=== PATIENT | male | born 1965 | race Two or more races ===

== ENCOUNTER 2019-11-16 08:40 | Emergency (ER) | payer MEDICAID, OTHER ==
[~2019-11-16] VITALS: Ht 170.2 cm; Wt 89.4 kg
[2019-11-16] MEDS ORDERED: SODIUM CHLORIDE 0.9% 1,000 ML IV ONE (09:08)
[2019-11-16 10:09] LABS: Basophils # (auto) 0 10 ^3/uL (0-0.2); Eosinophils # (auto) 0.1 10 ^3/uL (0-0.8); Eosinophils % (auto) 1.6 % (0.0-7.0); Lymphocytes % (auto) 20.8 % (10.0-50.0); Mean Corpuscular Hemoglobin 32.7 pg (28.0-32.0); Mean Corpuscular Volume 96.2 fL (80.0-100.0); Monocytes # (auto) 0.7 10 ^3/uL (0-1.3); Monocytes % (auto) 14.8 % (0.0-12.0); Neutrophils % (auto) 61.8 % (37.0-80.0); Nucleated Red Blood Cells % 0.1 %; Platelet Count (auto) 123 10^3/uL (140-450); Red Blood Cells 4.57 10^6/uL (4.5-5.90); Red Cell Distribution Width 13.5 % (11.8-14.3); White Blood Cell 4.9 10^3/uL (4.4-10.8)
[2019-11-16 10:20] LABS: Albumin 3.4 g/dL (3.4-5.0); Calcium 8.2 mg/dL (8.5-10.1); Potassium 3.7 mmol/L (3.5-5.1)
[2019-11-16 10:24] LABS: BUN/Creatinine Ratio 23.3; Bilirubin, Total 1.2 mg/dL (0.2-1.0); Total Protein 7.2 g/dL (6.4-8.2)
[2019-11-16] MEDS ORDERED: AZITHROMYCIN 500MG/ 250ML 250 ML IV ONE (11:45)
[2019-11-16] MEDS ORDERED: cefTRIAXone 1GM/50ML D5W 50 ML IV ONE (11:45)
[2019-11-16 11:48] LABS: Urine Bacteria NONE SEEN /hpf (None Seen); Urine Blood Negative /uL (Negative); Urine Mucus FEW (None Seen); Urine Specific Gravity 1.032 (1.001-1.035); Urine WBC 3 /hpf (0 - 3)
[2019-11-16 12:00] LABS: Alcohol, Urine < 3.0 mg/dL (0-5); Amphetamine Screen, Urine NEGATIVE (NEGATIVE); Barbiturate Scree,Urine NEGATIVE (NEGATIVE); Benzodiazephine Screen, Urine NEGATIVE (NEGATIVE); Cannabinoid Screen, Urine NEGATIVE (NEGATIVE); Cocaine Screen, Urine NEGATIVE (NEGATIVE); Opiate Scree,Urine NEGATIVE (NEGATIVE); Phencyclidine Screen, Urine NEGATIVE (NEGATIVE)
[2019-11-16] MEDS ORDERED: ACETAMINOPHEN 650 mg PER 20 mL UD ONE (12:03)
[2019-11-16] MEDS ORDERED: ACETAMINOPHEN 650 mg PER 20 mL UD PO ONE (12:15)
[2019-11-16 12:18] VITALS: BP 104/66
== END 2019-11-16 13:23 | disposition home or self-care (01) ==
LOC: ER 08:40
DX: B34.9 Viral infection, unspecified (principal); J18.9 Pneumonia, unspecified organism; R51 Headache; J45.909 Unspecified asthma, uncomplicated
CPT/HCPCS: 36415; 71045; 80053; 80307; 81001; 83735; 84443; 85025; 87070; 87804; 87880; 93005; 96365; 96367; 99285; J0456; J0696; J7030

== ENCOUNTER 2020-12-09 16:22 | Emergency (ER) | payer MEDICAID ==
[~2020-12-09] VITALS: Ht 170.2 cm; Wt 88.9 kg
[2020-12-09 16:26] VITALS: BP 139/87
[2020-12-09 17:07] LABS: Basophils # (auto) 0 10 ^3/uL (0-0.2); Basophils % (auto) 0.5 % (0.0-2.0); Eosinophils # (auto) 0.4 10 ^3/uL (0-0.8); Eosinophils % (auto) 4.8 % (0.0-7.0); Hematocrit 43.3 % (41.0-53.0); Hemoglobin 14.6 g/dL (13.5-17.5); Lymphocytes # (auto) 3.1 10 ^3/uL (0.4-5.4); Lymphocytes % (auto) 36.4 % (10.0-50.0); Mean Corpuscular Hemoglobin 32.8 pg (28.0-32.0); Mean Corpuscular Hgb Conc. 33.7 g/dL (32.0-36.0); Mean Corpuscular Volume 97.3 fL (80.0-100.0); Monocytes # (auto) 0.7 10 ^3/uL (0-1.3); Neutrophils # (auto) 4.2 10 ^3/uL (1.6-8.6); Neutrophils % (auto) 50.3 % (37.0-80.0); Platelet Count (auto) 233 10^3/uL (140-450); Red Blood Cells 4.45 10^6/uL (4.5-5.90); Red Cell Distribution Width 13.8 % (11.8-14.3); White Blood Cell 8.4 10^3/uL (4.4-10.8)
[2020-12-09 17:21] LABS: Calcium 8.2 mg/dL (8.5-10.1); Chloride 112 mmol/L (98-107); Potassium 4.1 mmol/L (3.5-5.1); Sodium 142 mmol/L (136-145)
[2020-12-09 17:29] LABS: Alanine Aminotransferase 34 U/L (16-61); Albumin 3.7 g/dL (3.4-5.0); Alkaline Phosphatase 54 U/L (45-117); Anion Gap 6 (5-15); Aspartate Aminotransferase 26 U/L (15-37); BUN/Creatinine Ratio 35.1; Bilirubin, Total 0.5 mg/dL (0.2-1.0); Blood Urea Nitrogen 27 mg/dL (7-18); Carbon Dioxide 24 mmol/L (21-32); GFR African American 135 mL/min; GFR Non-African American 112 mL/min; Glucose 88 mg/dL (74-106); Total Protein 6.9 g/dL (6.4-8.2)
== END 2020-12-09 17:52 | disposition home or self-care (01) ==
LOC: ER 16:22
DX: R07.89 Other chest pain (principal); J45.909 Unspecified asthma, uncomplicated
CPT/HCPCS: 36415; 71046; 80053; 83880; 84484; 85025; 85379; 93005

== ENCOUNTER 2021-04-16 11:32 | Emergency (ER) | payer MEDICAID ==
[~2021-04-16] VITALS: Ht 170.2 cm; Wt 83.9 kg
[2021-04-16 14:22] LABS: Basophils # (auto) 0.1 10 ^3/uL (0-0.2); Basophils % (auto) 0.7 % (0.0-2.0); Eosinophils # (auto) 0.5 10 ^3/uL (0-0.8); Eosinophils % (auto) 6.4 % (0.0-7.0); Hemoglobin 15.6 g/dL (13.5-17.5); Lymphocytes # (auto) 2.6 10 ^3/uL (0.4-5.4); Lymphocytes % (auto) 35.4 % (10.0-50.0); Mean Corpuscular Volume 97.1 fL (80.0-100.0); Monocytes # (auto) 0.6 10 ^3/uL (0-1.3); Monocytes % (auto) 7.6 % (0.0-12.0); Neutrophils # (auto) 3.7 10 ^3/uL (1.6-8.6); Neutrophils % (auto) 49.9 % (37.0-80.0); Red Blood Cells 4.74 10^6/uL (4.5-5.90); Red Cell Distribution Width 13.8 % (11.8-14.3); White Blood Cell 7.5 10^3/uL (4.4-10.8)
[2021-04-16 14:25] LABS: Urine Bacteria NONE SEEN /hpf (None Seen); Urine Blood Negative /uL (Negative); Urine Mucus FEW (None Seen); Urine Specific Gravity 1.033 (1.001-1.035); Urine WBC 2 /hpf (0 - 3)
[2021-04-16 14:33] LABS: Albumin 3.8 g/dL (3.4-5.0); BUN/Creatinine Ratio 26.4; Calcium 8.6 mg/dL (8.5-10.1); Potassium 4.1 mmol/L (3.5-5.1)
[2021-04-16 14:36] LABS: Bilirubin, Total 0.9 mg/dL (0.2-1.0); Total Protein 7.5 g/dL (6.4-8.2)
[2021-04-16] MEDS ORDERED: KETOROLAC TROMETH 60MG/2ML VIAL IM ONE (16:45)
[2021-04-16 17:45] VITALS: BP 145/74
== END 2021-04-16 17:47 | disposition home or self-care (01) ==
LOC: ER 11:32
DX: M94.0 Chondrocostal junction syndrome [Tietze] (principal); M76.20 Iliac crest spur, unspecified hip; K63.89 Other specified diseases of intestine; K57.90 Diverticulosis of intestine, part unspecified, without perforation or abscess without bleeding; G89.29 Other chronic pain; M54.5 Low back pain; J45.909 Unspecified asthma, uncomplicated; Z88.1 Allergy status to other antibiotic agents
CPT/HCPCS: 36415; 71046; 72170; 74176; 80053; 81001; 85025; 96372; 99285; J1885

== ENCOUNTER → 2022-10-24 | Outpatient (CLI) | payer MEDICAID ==
[2022-10-24 12:47] LABS: Basophils # (auto) 0 10 ^3/uL (0-0.2); Basophils % (auto) 0.5 % (0.0-2.0); Eosinophils # (auto) 0.3 10 ^3/uL (0-0.8); Lymphocytes # (auto) 1.5 10 ^3/uL (0.4-5.4); Nucleated Red Blood Cells % 0.1 %; Red Cell Distribution Width 13.8 % (11.8-14.3); White Blood Cell 9.7 10^3/uL (4.4-10.8)
[2022-10-24 12:49] LABS: Eosinophils % (auto) 3.4 % (0.0-7.0); Hemoglobin 19.8 g/dL (13.5-17.5); Lymphocytes % (auto) 15.3 % (10.0-50.0); Mean Corpuscular Hemoglobin 34.6 pg (28.0-32.0); Mean Corpuscular Hgb Conc. 34.4 g/dL (32.0-36.0); Mean Corpuscular Volume 100.4 fL (80.0-100.0); Monocytes # (auto) 0.7 10 ^3/uL (0-1.3); Monocytes % (auto) 7.7 % (0.0-12.0); Neutrophils # (auto) 7.1 10 ^3/uL (1.6-8.6); Neutrophils % (auto) 73.1 % (37.0-80.0); Red Blood Cells 5.74 10^6/uL (4.5-5.90)
[2022-10-24 12:52] LABS: Hematocrit 57.6 % (41.0-53.0)
[2022-10-24 13:00] LABS: Calcium 8.3 mg/dL (8.5-10.1); Potassium 4.4 mmol/L (3.5-5.1)
== END | disposition home or self-care (01) ==
LOC: LAB 11:49
PROVIDERS: ATTEND Urology
DX: N52.9 Male erectile dysfunction, unspecified (principal); E29.1 Testicular hypofunction
CPT/HCPCS: 36415; 80048; 84153; 85025

== ENCOUNTER → 2023-04-19 | Outpatient (CLI) | payer MEDICAID ==
[2023-04-19 15:33] LABS: Basophils # (auto) 0.1 10 ^3/uL (0-0.2); Basophils % (auto) 0.8 % (0.0-2.0); Eosinophils # (auto) 0.4 10 ^3/uL (0-0.8); Eosinophils % (auto) 5.3 % (0.0-7.0); Hematocrit 46.2 % (41.0-53.0); Lymphocytes # (auto) 2.8 10 ^3/uL (0.4-5.4); Lymphocytes % (auto) 41.1 % (10.0-50.0); Mean Corpuscular Hemoglobin 34.6 pg (28.0-32.0); Mean Corpuscular Hgb Conc. 34.5 g/dL (32.0-36.0); Mean Corpuscular Volume 100.3 fL (80.0-100.0); Monocytes # (auto) 0.6 10 ^3/uL (0-1.3); Neutrophils # (auto) 3.1 10 ^3/uL (1.6-8.6); Neutrophils % (auto) 44.8 % (37.0-80.0); Nucleated Red Blood Cells % 0.1 %; Red Blood Cells 4.61 10^6/uL (4.5-5.90); Red Cell Distribution Width 13.4 % (11.8-14.3); White Blood Cell 6.9 10^3/uL (4.4-10.8)
[2023-04-19 15:54] LABS: Alanine Aminotransferase 36 U/L (7-40); Albumin 4.5 g/dL (3.2-4.8); Alkaline Phosphatase 57 U/L (46-116); Anion Gap 4.3 (5-15); Aspartate Aminotransferase 20 U/L (13-40); BUN/Creatinine Ratio 12.8 (10.0-20.0); Bilirubin, Total 0.5 mg/dL (0.2-1.0); Blood Urea Nitrogen 11 mg/dL (9-23); Calcium 8.7 mg/dL (8.7-10.4); Carbon Dioxide 26.7 mmol/L (20-30); Chloride 108 mmol/L (98-107); Glucose 100 mg/dL (74-106); Potassium 3.8 mmol/L (3.5-5.1); Sodium 139 mmol/L (136-145); Total Protein 7.2 g/dL (5.7-8.2)
[2023-04-19 17:47] LABS: Bilirubin, Direct 0.2 mg/dL (<0.3)
== END | disposition home or self-care (01) ==
LOC: LAB 15:07
PROVIDERS: ATTEND Urology
DX: E29.1 Testicular hypofunction (principal)
CPT/HCPCS: 36415; 80048; 80076; 84153; 84403; 85025

== ENCOUNTER 2023-04-28 17:40 | Emergency (ER) | payer MEDICAID ==
[~2023-04-28] VITALS: Ht 170.2 cm; Wt 82.2 kg
[2023-04-28 17:44] VITALS: BP 130/70; RESP 18; O2SAT 95
[2023-04-28 18:11] LABS: Basophils # (auto) 0.1 10 ^3/uL (0-0.2); Basophils % (auto) 0.7 % (0.0-2.0); Eosinophils # (auto) 0.6 10 ^3/uL (0-0.8); Hemoglobin 15.1 g/dL (13.5-17.5); Lymphocytes # (auto) 3.5 10 ^3/uL (0.4-5.4); Neutrophils # (auto) 3.1 10 ^3/uL (1.6-8.6)
[2023-04-28 18:12] LABS: Eosinophils % (auto) 7.5 % (0.0-7.0); Hematocrit 43.7 % (41.0-53.0); Lymphocytes % (auto) 43.7 % (10.0-50.0); Mean Corpuscular Hemoglobin 34.6 pg (28.0-32.0); Mean Corpuscular Hgb Conc. 34.6 g/dL (32.0-36.0); Monocytes # (auto) 0.7 10 ^3/uL (0-1.3); Monocytes % (auto) 8.8 % (0.0-12.0); Neutrophils % (auto) 39.3 % (37.0-80.0); Nucleated Red Blood Cells % 0.1 %; Red Blood Cells 4.37 10^6/uL (4.5-5.90); Red Cell Distribution Width 13.6 % (11.8-14.3); White Blood Cell 7.9 10^3/uL (4.4-10.8)
[2023-04-28 18:20] LABS: Alanine Aminotransferase 27 U/L (7-40); Albumin 4.3 g/dL (3.2-4.8); Alkaline Phosphatase 50 U/L (46-116); Anion Gap 6 (5-15); Aspartate Aminotransferase 23 U/L (13-40); BUN/Creatinine Ratio 18.4 (10.0-20.0); Bilirubin, Total 0.5 mg/dL (0.2-1.0); Blood Urea Nitrogen 14 mg/dL (9-23); Calcium 8.9 mg/dL (8.5-10.1); Carbon Dioxide 23 mmol/L (20-30); Chloride 111 mmol/L (98-107); Glucose 91 mg/dL (74-106); Potassium 3.8 mmol/L (3.5-5.1); Sodium 140 mmol/L (136-145); Total Protein 6.9 g/dL (5.7-8.2)
[2023-04-28 18:22] LABS: INR 1.04 (0.9-1.15); Partial Thromboplastin Time 29.3 SEC (24.5-34.5); Prothrombin Time 10.9 sec (9.3-11.8)
[2023-04-28 20:48] VITALS: PULSE 75
== END 2023-04-28 20:53 | disposition left against medical advice (07) ==
LOC: ER 17:40
DX: R07.89 Other chest pain (principal); I10 Essential (primary) hypertension; J45.909 Unspecified asthma, uncomplicated; F17.210 Nicotine dependence, cigarettes, uncomplicated; G89.29 Other chronic pain; M54.9 Dorsalgia, unspecified; Z88.1 Allergy status to other antibiotic agents
CPT/HCPCS: 36415; 71045; 80053; 83735; 83880; 84484; 85025; 85610; 85730; 93005

== ENCOUNTER 2023-10-24 13:43 | Inpatient (IN) | payer MEDICAID ==
[~2023-10-24] VITALS: Ht 180.3 cm; Wt 81.1 kg
[2023-10-24 05:00] VITALS: BP 117/81; PULSE 76; RESP 18; TEMP 98.5; O2SAT 95
[2023-10-24 14:30] LABS: Urine WBC None Seen /hpf (0 - 3)
[2023-10-24 14:47] LABS: Urine Bacteria NONE SEEN /hpf (None Seen); Urine Blood Negative /uL (Negative); Urine Clarity Clear (Clear); Urine Color Colorless (Yellow); Urine Protein, UAD Negative (Negative); Urine Specific Gravity 1.008 (1.001-1.035); Urine Urobilinogen Normal (Negative)
[2023-10-24 15:04] LABS: Basophils # (auto) 0 10 ^3/uL (0-0.2); Basophils % (auto) 0.5 % (0.0-2.0); Eosinophils # (auto) 0.4 10 ^3/uL (0-0.8); Eosinophils % (auto) 4.7 % (0.0-7.0); Hematocrit 48.6 % (41.0-53.0); Hemoglobin 16.4 g/dL (13.5-17.5); Lymphocytes # (auto) 2.4 10 ^3/uL (0.4-5.4); Lymphocytes % (auto) 29.2 % (10.0-50.0); Mean Corpuscular Hgb Conc. 33.8 g/dL (32.0-36.0); Mean Corpuscular Volume 100.6 fL (80.0-100.0); Monocytes # (auto) 0.7 10 ^3/uL (0-1.3); Monocytes % (auto) 8.9 % (0.0-12.0); Neutrophils # (auto) 4.8 10 ^3/uL (1.6-8.6); Neutrophils % (auto) 56.7 % (37.0-80.0); Red Blood Cells 4.83 10^6/uL (4.5-5.90); Red Cell Distribution Width 13.8 % (11.8-14.3); White Blood Cell 8.4 10^3/uL (4.4-10.8)
[2023-10-24 15:29] LABS: Alanine Aminotransferase 27 U/L (7-40); Albumin 4.7 g/dL (3.2-4.8); Alkaline Phosphatase 71 U/L (46-116); Anion Gap 3 (5-15); Aspartate Aminotransferase 24 U/L (13-40); BUN/Creatinine Ratio 17.2 (10.0-20.0); Bilirubin, Total 0.7 mg/dL (0.2-1.0); Blood Urea Nitrogen 15 mg/dL (9-23); Calcium 9.4 mg/dL (8.5-10.1); Carbon Dioxide 31 mmol/L (20-30); Chloride 104 mmol/L (98-107); Glucose 87 mg/dL (74-106); Potassium 4.1 mmol/L (3.5-5.1); Sodium 138 mmol/L (136-145); Total Protein 7.3 g/dL (5.7-8.2)
[2023-10-24 15:44] LABS: Lipase 40 U/L (12-53)
[2023-10-24 20:15] VITALS: PULSE 85; RESP 18; O2SAT 98
[2023-10-24] MEDS ORDERED: TEMAZEPAM 15 MG CAP PO PRN (20:30)
[2023-10-24] MEDS ORDERED: ALBUTEROL SULF 2.5 MG/0.5ML(0.5%) NEB SOLN NEB PRN (20:30)
[2023-10-24] MEDS: cefTRIAXone 1GM/50ML D5W 50 ML IV ONE (20:30)
[2023-10-24] MEDS ORDERED: ACETAMINOPHEN 325 MG TAB PO PRN (20:30)
[2023-10-24] MEDS ORDERED: ONDANSETRON HCL 4 MG/2 ML VIAL IV PRN (20:30)
[2023-10-24] MEDS: SODIUM CHLORIDE 0.9% 1,000 ML IVB ONE (20:48)
[2023-10-24] MEDS: metroNIDAZOLE 500MG/100ML 100 ML IV ONE (20:48)
[2023-10-24] MEDS: MORPHINE SULFATE 4 MG/ML SYR/VIAL IV ONE (20:49)
[2023-10-24] MEDS: ONDANSETRON HCL 4 MG/2 ML VIAL IV ONE (20:49)
[2023-10-24 20:51] VITALS: BP 144/101; PULSE 81; RESP 16; TEMP 97.9; O2SAT 97
[2023-10-25] VITALS (10 sets, daily range): BP systolic 105–124; BP diastolic 71–90; PULSE 68–77; RESP 16–18; TEMP 97.5–98.5; O2SAT 94–98
[2023-10-25] MEDS ORDERED: HYDR-4072 PO (01:40)
[2023-10-25] MEDS ORDERED: TEST1INJ9 IM (01:40)
[2023-10-25] MEDS ORDERED: HYDR12.59 PO (01:40)
[2023-10-25] MEDS ORDERED: IBUP-1455 PO (01:40)
[2023-10-25] MEDS: metroNIDAZOLE 500MG/100ML 100 ML IV SCH (05:18)
[2023-10-25 07:07] LABS: Basophils # (auto) 0.1 10 ^3/uL (0-0.2); Basophils % (auto) 0.8 % (0.0-2.0); Eosinophils # (auto) 0.4 10 ^3/uL (0-0.8); Eosinophils % (auto) 5.2 % (0.0-7.0); Hematocrit 48.3 % (41.0-53.0); Hemoglobin 16.3 g/dL (13.5-17.5); Lymphocytes # (auto) 1.5 10 ^3/uL (0.4-5.4); Lymphocytes % (auto) 21.7 % (10.0-50.0); Mean Corpuscular Hemoglobin 33.9 pg (28.0-32.0); Mean Corpuscular Hgb Conc. 33.8 g/dL (32.0-36.0); Mean Corpuscular Volume 100.4 fL (80.0-100.0); Monocytes # (auto) 0.7 10 ^3/uL (0-1.3); Monocytes % (auto) 10.1 % (0.0-12.0); Neutrophils # (auto) 4.3 10 ^3/uL (1.6-8.6); Neutrophils % (auto) 62.2 % (37.0-80.0); Nucleated Red Blood Cells % 0.1 %; Red Blood Cells 4.81 10^6/uL (4.5-5.90); Red Cell Distribution Width 13.4 % (11.8-14.3)
[2023-10-25 07:17] LABS: Chloride 108 mmol/L (98-107); Potassium 3.9 mmol/L (3.5-5.1); Sodium 140 mmol/L (136-145)
[2023-10-25 07:18] LABS: Anion Gap 8 (5-15); Calcium 8.6 mg/dL (8.5-10.1); Carbon Dioxide 24 mmol/L (20-30)
[2023-10-25 07:23] LABS: BUN/Creatinine Ratio 15.5 (10.0-20.0); Blood Urea Nitrogen 11 mg/dL (9-23); Glucose 84 mg/dL (74-106)
[2023-10-25] MEDS: cefTRIAXone 1GM/50ML D5W 50 ML IV SCH (09:36)
[2023-10-25] MEDS: HYDROcodone-ACET 5/325MG TAB PO PRN (09:37)
[2023-10-25] MEDS: hydroCHLOROthiazide 25 MG TAB PO SCH (09:48)
[2023-10-25] MEDS: SODIUM CHLORIDE 0.9% 1,000 ML IV SCH (10:45)
[2023-10-25] MEDS ORDERED: chlordiazePOXIDE HCL 25 MG CAP PO PRN (10:45)
[2023-10-25] MEDS: FOLIC ACID 1 MG in D5W 5% 50 ML INJ ONE (10:45)
[2023-10-25] MEDS: THIAMINE 100mg/ml INJ (200mg/2ml VIAL) IV ONE (14:10)
[2023-10-26] VITALS (11 sets, daily range): BP systolic 115–139; BP diastolic 58–90; PULSE 55–78; RESP 18–20; TEMP 36.8; O2SAT 91–96
[2023-10-26 04:31] LABS: Basophils # (auto) 0.1 10 ^3/uL (0-0.2); Eosinophils # (auto) 0.4 10 ^3/uL (0-0.8); Eosinophils % (auto) 6.5 % (0.0-7.0); Hematocrit 49.5 % (41.0-53.0); Hemoglobin 16.5 g/dL (13.5-17.5); Lymphocytes # (auto) 1.6 10 ^3/uL (0.4-5.4); Lymphocytes % (auto) 27.4 % (10.0-50.0); Mean Corpuscular Hemoglobin 33.7 pg (28.0-32.0); Mean Corpuscular Hgb Conc. 33.4 g/dL (32.0-36.0); Mean Corpuscular Volume 100.8 fL (80.0-100.0); Monocytes # (auto) 0.5 10 ^3/uL (0-1.3); Monocytes % (auto) 8.7 % (0.0-12.0); Neutrophils # (auto) 3.2 10 ^3/uL (1.6-8.6); Neutrophils % (auto) 56.4 % (37.0-80.0); Red Cell Distribution Width 13.3 % (11.8-14.3); White Blood Cell 5.7 10^3/uL (4.4-10.8)
[2023-10-26 04:41] LABS: Chloride 109 mmol/L (98-107); Potassium 4.1 mmol/L (3.5-5.1); Sodium 141 mmol/L (136-145)
[2023-10-26 04:42] LABS: Anion Gap 7 (5-15); Calcium 8.7 mg/dL (8.5-10.1); Carbon Dioxide 25 mmol/L (20-30)
[2023-10-26 04:47] LABS: BUN/Creatinine Ratio 11.3 (10.0-20.0); Blood Urea Nitrogen 8 mg/dL (9-23); Glucose 87 mg/dL (74-106)
[2023-10-26] MEDS: THIAMINE 100mg/ml INJ (200mg/2ml VIAL) IV SCH (10:52)
[2023-10-26] MEDS: FOLIC ACID 1 MG in D5W 5% 50 ML INJ SCH (10:53)
[2023-10-27] VITALS (7 sets, daily range): BP systolic 118–144; BP diastolic 58–92; PULSE 68–87; RESP 18–20; TEMP 36.4–36.6; O2SAT 92–96
[2023-10-27] MEDS ORDERED: METR-344 PO (13:45)
== END 2023-10-27 15:20 | disposition home or self-care (01) | DRG 244 ==
LOC: ER 13:43 → CENTRAL 20:34 → OVERFLOW 20:34 → CENTRAL 10-25 00:16
PROVIDERS: ADMIT Nurse Practitioner; ATTEND Internal Medicine
DX: K57.32 Diverticulitis of large intestine without perforation or abscess without bleeding (principal); F10.10 Alcohol abuse, uncomplicated; F17.210 Nicotine dependence, cigarettes, uncomplicated; I10 Essential (primary) hypertension; J45.909 Unspecified asthma, uncomplicated; Z88.1 Allergy status to other antibiotic agents
CPT/HCPCS: 36415; 74176; 80048; 80053; 81001; 83690; 85025; 96374; G0378; J2405; J3490; J7060

== ENCOUNTER 2024-05-15 07:05 | Emergency (ER) | payer MEDICAID ==
[~2024-05-15] VITALS: Ht 170.2 cm; Wt 84.3 kg
[~2024-05-15 07:05] MED LIST: HYDR-4072 PO; HYDR12.59 PO; IBUP-1455 PO; METR-344 PO; TEST1INJ9 IM
[2024-05-15 07:50] VITALS: BP 133/99; PULSE 81; RESP 18; TEMP 97.9; O2SAT 95
[2024-05-15] MEDS: KETOROLAC TROMETH 60MG/2ML VIAL IM ONE (08:43)
== END 2024-05-15 08:56 | disposition home or self-care (01) ==
LOC: ER 07:05
DX: S00.31XA Abrasion of nose, initial encounter (principal); G44.309 Post-traumatic headache, unspecified, not intractable; I10 Essential (primary) hypertension; J45.909 Unspecified asthma, uncomplicated; F17.210 Nicotine dependence, cigarettes, uncomplicated; Z88.1 Allergy status to other antibiotic agents; Z79.899 Other long term (current) drug therapy; W18.39XA Other fall on same level, initial encounter; Y93.89 Activity, other specified; Y92.89 Other specified places as the place of occurrence of the external cause; Y99.8 Other external cause status
CPT/HCPCS: 70160; 70450; 96372; 99285; J1885

== ENCOUNTER 2024-05-29 11:52 | Inpatient (IN) | payer MEDICAID ==
[~2024-05-29] VITALS: Ht 170.2 cm; Wt 89.9 kg
[2024-05-29 14:14] LABS: Urine Bacteria None Seen /hpf (None Seen); Urine WBC None Seen /hpf (0 - 3)
[2024-05-29 14:37] LABS: Urine Blood Negative /uL (Negative); Urine Clarity Clear (Clear); Urine Color Yellow (Yellow); Urine Protein, UAD Negative (Negative); Urine Specific Gravity 1.022 (1.001-1.035); Urine Urobilinogen Normal (Negative); Urine pH 5.5 (5.0-9.0)
[2024-05-29 14:40] LABS: Basophils # (auto) 0.1 10 ^3/uL (0-0.2); Basophils % (auto) 0.6 % (0.0-2.0); Eosinophils # (auto) 0.3 10 ^3/uL (0-0.8); Eosinophils % (auto) 3.2 % (0.0-7.0); Hematocrit 55.8 % (41.0-53.0); Lymphocytes # (auto) 1.8 10 ^3/uL (0.4-5.4); Lymphocytes % (auto) 19.3 % (10.0-50.0); Mean Corpuscular Hemoglobin 35.1 pg (28.0-32.0); Mean Corpuscular Hgb Conc. 34.1 g/dL (32.0-36.0); Mean Corpuscular Volume 102.8 fL (80.0-100.0); Monocytes # (auto) 0.9 10 ^3/uL (0-1.3); Neutrophils # (auto) 6.5 10 ^3/uL (1.6-8.6); Neutrophils % (auto) 67.9 % (37.0-80.0); Nucleated Red Blood Cells % 0.1 %; Platelet Count (auto) 281 10^3/uL (140-450); Red Blood Cells 5.43 10^6/uL (4.5-5.90); Red Cell Distribution Width 13.7 % (11.8-14.3); White Blood Cell 9.6 10^3/uL (4.4-10.8)
[2024-05-29 14:57] LABS: Chloride 105 mmol/L (98-107); Potassium 3.9 mmol/L (3.5-5.1); Sodium 137 mmol/L (136-145)
[2024-05-29 14:58] LABS: Anion Gap 6 (5-15); Carbon Dioxide 26 mmol/L (20-31)
[2024-05-29 14:59] LABS: Calcium 9.5 mg/dL (8.7-10.4)
[2024-05-29 15:04] LABS: BUN/Creatinine Ratio 11.4 (10.0-20.0); Blood Urea Nitrogen 12 mg/dL (9-23); Glucose 97 mg/dL (74-106)
[2024-05-29 15:18] VITALS: PULSE 82; RESP 18; O2SAT 94
[2024-05-29] MEDS: cefTRIAXone 1GM/50ML D5W 50 ML IV ONE (17:54)
[2024-05-29] MEDS: metroNIDAZOLE 500MG/100ML 100 ML IV ONE (17:54)
[2024-05-29] MEDS: SODIUM CHLORIDE 0.9% 1,000 ML IV ONE ×2 (17:54)
[2024-05-29] MEDS: MORPHINE SULFATE 4 MG/ML SYR/VIAL IV ONE (17:54)
[2024-05-29] MEDS: ONDANSETRON HCL 4 MG/2 ML VIAL IV ONE (17:56)
[2024-05-29 20:15] VITALS: PULSE 80; RESP 16; O2SAT 96
[2024-05-29] MEDS ORDERED: ACETAMINOPHEN 325 MG TAB PO PRN (22:45)
[2024-05-29] MEDS ORDERED: DOCUSATE SOD 100 MG CAP PO PRN (22:45)
[2024-05-29] MEDS ORDERED: hydrALAZINE HCL 20 MG/ML VL IV PRN (22:45)
[2024-05-29] MEDS: SODIUM CHLORIDE 0.9% 1,000 ML IV SCH (23:10)
[2024-05-29] MEDS ORDERED: NITROGLYCERIN 0.4 MG SL TAB SL PRN (23:15)
[2024-05-29] MEDS ORDERED: MORPHINE SULFATE INJ 2 MG/ml SYRG IV PRN (23:15)
[2024-05-30] MEDS: MORPHINE SULFATE INJ 2 MG/ml SYRG IV PRN (01:26)
[2024-05-30 02:49] VITALS: BP 130/91; PULSE 76; RESP 18; TEMP 97.8; O2SAT 96
[2024-05-30] MEDS ORDERED: HYDR-4072 (03:28)
[2024-05-30] MEDS: metroNIDAZOLE 500MG/100ML 100 ML IV SCH (05:17)
[2024-05-30 06:27] LABS: Basophils # (auto) 0.1 10 ^3/uL (0-0.2); Eosinophils # (auto) 0.4 10 ^3/uL (0-0.8); Hemoglobin 17.1 g/dL (13.5-17.5); Lymphocytes # (auto) 1.9 10 ^3/uL (0.4-5.4); Monocytes # (auto) 0.8 10 ^3/uL (0-1.3); Monocytes % (auto) 11.4 % (0.0-12.0); Neutrophils # (auto) 3.5 10 ^3/uL (1.6-8.6)
[2024-05-30 06:30] LABS: Alanine Aminotransferase 25 U/L (7-40); Albumin 3.8 g/dL (3.2-4.8); Alkaline Phosphatase 56 U/L (46-116); Anion Gap 4 (5-15); Aspartate Aminotransferase 15 U/L (13-40); BUN/Creatinine Ratio 12.2 (10.0-20.0); Blood Urea Nitrogen 11 mg/dL (9-23); Calcium 8.5 mg/dL (8.7-10.4); Carbon Dioxide 28 mmol/L (20-31); Chloride 109 mmol/L (98-107); Eosinophils % (auto) 5.9 % (0.0-7.0); Glucose 79 mg/dL (74-106); Hematocrit 49.5 % (41.0-53.0); Lymphocytes % (auto) 28.2 % (10.0-50.0); Mean Corpuscular Hemoglobin 35.8 pg (28.0-32.0); Mean Corpuscular Hgb Conc. 34.6 g/dL (32.0-36.0); Mean Corpuscular Volume 103.2 fL (80.0-100.0); Neutrophils % (auto) 53.5 % (37.0-80.0); Platelet Count (auto) 243 10^3/uL (140-450); Red Blood Cells 4.79 10^6/uL (4.5-5.90); Red Cell Distribution Width 13.2 % (11.8-14.3); Sodium 141 mmol/L (136-145); White Blood Cell 6.6 10^3/uL (4.4-10.8)
[2024-05-30 06:31] LABS: Bilirubin, Total 1.2 mg/dL (0.2-1.0); Total Protein 6.2 g/dL (5.7-8.2)
[2024-05-30 07:49] VITALS: PULSE 75; RESP 17; O2SAT 97
[2024-05-30 09:00] VITALS: BP 136/111; PULSE 75; RESP 17; TEMP 97.9; O2SAT 97
[2024-05-30] MEDS: HYDROcodone-ACET 5/325MG TAB PO PRN (09:09)
[2024-05-30 13:00] VITALS: BP 130/89; PULSE 70; RESP 17; TEMP 97.8; O2SAT 96
[2024-05-30] MEDS ORDERED: METR-344 PO (13:14)
[2024-05-30] MEDS: levoFLOXacin 500MG 100 ML IV ONE (16:33)
[2024-05-30] MEDS: HYDROcodone-ACET 10/325MG TAB PO PRN (16:33)
[2024-05-30 17:00] VITALS: BP 121/83; PULSE 84; RESP 17; TEMP 97.9; O2SAT 94
[2024-05-30 21:00] VITALS: BP 128/89; PULSE 80; RESP 19; TEMP 98.6; O2SAT 98
[2024-05-31 01:00] VITALS: BP 144/97; PULSE 77; RESP 16; TEMP 97.9; O2SAT 97
[2024-05-31 05:00] VITALS: BP 125/85; PULSE 80; TEMP 97.9; O2SAT 95
[2024-05-31] MEDS: ONDANSETRON HCL 4 MG/2 ML VIAL IV PRN (05:29)
[2024-05-31 08:00] VITALS: PULSE 104; RESP 17; O2SAT 97
[2024-05-31 09:00] VITALS: BP 137/93; PULSE 104; RESP 17; TEMP 97.7; O2SAT 95
[2024-05-31] MEDS: levoFLOXacin 500MG 100 ML IV SCH (10:15)
[2024-05-31 13:00] VITALS: BP 126/89; PULSE 64; RESP 16; TEMP 97.6; O2SAT 94
[2024-05-31 16:47] VITALS: BP 116/75; PULSE 72; RESP 20; TEMP 97.4; O2SAT 93
== END 2024-05-31 17:37 | disposition home or self-care (01) | DRG 244 ==
LOC: ER 12:01 → OVERFLOW 23:14 → EAST 05-30 02:47
PROVIDERS: ADMIT Nurse Practitioner Family; ATTEND Internal Medicine
DX: K57.32 Diverticulitis of large intestine without perforation or abscess without bleeding (principal); F17.210 Nicotine dependence, cigarettes, uncomplicated; I10 Essential (primary) hypertension; K59.00 Constipation, unspecified; J45.909 Unspecified asthma, uncomplicated; Z88.1 Allergy status to other antibiotic agents; Z79.899 Other long term (current) drug therapy; Z79.891 Long term (current) use of opiate analgesic
CPT/HCPCS: 36415; 74176; 80048; 80053; 81001; 83605; 85025; 87040; 87081; G0378; J1956; J2405; J3490

== ENCOUNTER → 2024-09-01 | Outpatient (CLI) | payer MEDICAID ==
[~2024-09-01] MED LIST changes: -TEST1INJ9 IM
[2024-09-01 11:55] LABS: Eosinophils # (auto) 0.2 10 ^3/uL (0-0.8); Lymphocytes # (auto) 2.3 10 ^3/uL (0.4-5.4)
[2024-09-01 11:58] LABS: Basophils # (auto) 0 10 ^3/uL (0-0.2); Basophils % (auto) 0.7 % (0.0-2.0); Eosinophils % (auto) 3.4 % (0.0-7.0); Hematocrit 52.6 % (41.0-53.0); Hemoglobin 18.2 g/dL (13.5-17.5); Lymphocytes % (auto) 38.8 % (10.0-50.0); Mean Corpuscular Hemoglobin 34.8 pg (28.0-32.0); Mean Corpuscular Hgb Conc. 34.5 g/dL (32.0-36.0); Mean Corpuscular Volume 100.9 fL (80.0-100.0); Monocytes # (auto) 0.5 10 ^3/uL (0-1.3); Monocytes % (auto) 8.9 % (0.0-12.0); Neutrophils # (auto) 2.9 10 ^3/uL (1.6-8.6); Neutrophils % (auto) 48.2 % (37.0-80.0); Nucleated Red Blood Cells % 0.2 %; Platelet Count (auto) 225 10^3/uL (140-450); Red Blood Cells 5.21 10^6/uL (4.5-5.90); Red Cell Distribution Width 14.3 % (11.8-14.3)
[2024-09-01 12:40] LABS: Albumin 4.8 g/dL (3.2-4.8); Bilirubin, Direct 0.2 mg/dL (<0.3); Bilirubin, Total 0.7 mg/dL (0.2-1.0); Total Protein 7.2 g/dL (5.7-8.2)
== END | disposition home or self-care (01) ==
LOC: LAB 11:15
PROVIDERS: ATTEND Urology
DX: E29.1 Testicular hypofunction (principal)
CPT/HCPCS: 36415; 80076; 84153; 84403; 85025

== ENCOUNTER 2024-09-15 11:37 | Emergency (ER) | payer MEDICAID, SELFPAY ==
[~2024-09-15] VITALS: Ht 170.2 cm; Wt 82.5 kg
--- NOTE | 2024-09-15 12:09 | ED.PDOC ---
General HPI Comments 58 y.o male presents to the ED for chief complaint of left flank pain radiating to his LLQ pain that presented 2 weeks ago. Patient describes pain as sharp, constant, and rating a 6/10 on the pain scale. Patient denies any fever, chills, nausea, vomiting, diarrhea. Patient has a medical history of diverticulitis and HTN Chief Complaint: Flank Pain Time Seen by MD: 12:01 Primary Care Provider: ROGER Reviewed notes: Nurses Notes, Medications, Allergies Allergies: Coded Allergies: Tetracycline (Verified Allergy, Unknown, 12/09/20) Home Meds Active Scripts Tramadol Hcl (Tramadol Hcl) 50 Mg Tab, 50 MG PO Q8HP PRN for 5 Days, #15 TAB Prov:BJORN DUTTON MD 09/15/24 Metronidazole (Flagyl) 500 Mg Tab, 500 MG PO TID for 5 Days, #15 TAB Prov:BIBIANA JUAREZ DO 05/30/24 Reported Medications Ibuprofen Micronized (Ibuprofen) 800 Mg Tab, 1 TAB PO TID PRN for PAIN SCALE 1 THRU 6 10/25/23 Hydrochlorothiazide (Hydrochlorothiazide) 12.5 Mg Cap, 1 CAP PO DAILY 10/25/23 Hydrocodone-Acetaminophen (Hydrocodone/Acetaminophen 10-325 mg) 1 Tab Tab, 10- 325 MG PO Q6HPRN 10/25/23 Information Source: Patient Mode of Arrival: Ambulatory Severity: Moderate Timing: Weeks (2) Duration: Since onset Onset: Spontaneous Symptoms: None History of: None Location: (L)Flank Modifying factors: None associated signs and symptoms: Abdominal Pain, Flank Pain, Back Pain Past Medical History PAST MEDICAL HISTORY: Asthma, HTN Past Medical History (Other): Diverticulitis Surgical History: Denies all surgeries Family History Family History: Reviewed,noncontributory to illness Social History Smoker: Cigarettes Alcohol: Occasionally Drugs: Denies Drug Use Lives In: Home Constitutional: denies: chills, diaphoresis, fatigue, fever, malaise, sweats, weakness, others EENTM: denies: blurred vision, double vision, ear bleeding, ear discharge, ear drainage, ear pain, ear ringing, eye pain, eye redness, hearing loss, mouth pain, mouth swelling, nasal discharge, nose bleeding, nose congestion, nose pain, photophobia, tearing, throat pain, throat swelling, voice changes, others Cardiovascular: denies: chest pain, dizzy spells, diaphoresis, Dyspnea on exertion, edema, irregular heart beat, left arm pain, lightheadedness, palpitations, PND, syncope, others Gastrointestinal: reports: abdominal pain; denies: abdomen distended, blood streaked bowels, constipated, diarrhea, dysphagia, difficulty swallowing, hematemesis, melena, nausea, poor appetite, poor fluid intake, rectal bleeding, rectal pain, vomiting, others Genitourinary: reports: flank pain; denies: burning, dysuria, frequency, hematuria, incontinence, penile discharge, penile sore, pain, testicle pain, testicle swelling, urgency, others Neurological: denies: dizziness, fainting, headache, left sided numbness, left sided weakness, numbness, paresthesia, pre-existing deficit, right sided numbness, right sided weakness, seizure, speech problems, tingling, tremors, weakness, others Musculoskeletal: denies: back pain, gout, joint pain, joint swelling, muscle pain, muscle stiffness, neck pain, others Integumetry: denies: bruises, change in color, change in hair/nails, dryness, laceration, lesions, lumps, rash, wounds, others Hematologic/Lymphatic: denies: anemia, blood clots, easy bleeding, easy bruising, swollen glands, others Endocrine: denies: excessive hunger, excessive sweating, excessive thirst, excessive urination, flushing, intolerance to cold, intolerance to heat, unexplained weight gain, unexplained weight loss, others Psychiatric: denies: anxiety, bipolar disorder, depression, hopeless, panic disorder, schizophrenia, sleepless, suicidal, others All Other Systems: Reviewed and Negative Physical Exam General Appearance: No Apparent Distress HEENT: Normal ENT Inspection, Pharynx Normal, TMs Normal Neck: Full Range of Motion, Non-Tender, Normal, Normal Inspection Respiratory: Chest Non-Tender, Lungs Clear, No Accessory Muscle Use, No Respiratory Distress, Normal Breath Sounds Cardiovascular: No Edema, No JVD, No Murmur, No Gallop, Normal Peripheral Pulses, Regular Rate/Rhythm Breast Exam: Deferred Gastrointestinal: No Organomegaly, Non Tender, No Pulsatile Mass, Normal Bowel Sounds, Soft Genitalia: Deferred Pelvic: Deferred Rectal: Deferred Extremities: No calf tenderness, Normal capillary refill, Normal inspection, Normal range of motion, Non-tender, No pedal edema Musculoskeletal : Location: Left Extremity Location: Back Apperance: Tenderness: Mild Neurologic: Alert, 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 Was a procedure done?: No Differential Diagnosis Kidney stone (Female): Musculoskeletal pain, Pancreatitis, Pyelonephritis, Strain X-Ray, Labs, Meds, VS Vital Signs Date Time Temp Pulse Resp B/P (MAP) Pulse Ox O2 Delivery O2 Flow Rate FiO2 09/15/24 11:46 98.3 84 16 156/102 (120) 95 Lab Test 09/15/24 13:10 09/15/24 12:04 Range/Units White Blood Count 5.8 4.4-10.8 10^3/uL Red Blood Count 5.12 4.5-5.90 10^6/uL Hemoglobin 18.0 H 13.5-17.5 g/dL Hematocrit 52.1 41.0-53.0 % Mean Corpuscular Volume 101.8 H 80.0-100.0 fL Mean Corpuscular Hemoglobin 35.1 H 28.0-32.0 pg Mean Corpuscular Hemoglobin Concent 34.5 32.0-36.0 g/dL Red Cell Distribution Width 14.8 H 11.8-14.3 % Platelet Count 208 140-450 10^3/uL Mean Platelet Volume 7.4 6.9-10.8 fL Neutrophils (%) (Auto) 57.6 37.0-80.0 % Lymphocytes (%) (Auto) 31.6 10.0-50.0 % Monocytes (%) (Auto) 8.1 0.0-12.0 % Eosinophils (%) (Auto) 2.3 0.0-7.0 % Basophils (%) (Auto) 0.4 0.0-2.0 % Neutrophils # (Auto) 3.3 1.6-8.6 10 ^3/uL Lymphocytes # (Auto) 1.8 0.4-5.4 10 ^3/uL Monocytes # (Auto) 0.5 0-1.3 10 ^3/uL Eosinophils # (Auto) 0.1 0-0.8 10 ^3/uL Basophils # (Auto) 0 0-0.2 10 ^3/uL Nucleated Red Blood Cells 0.1 % Sodium Level 139 136-145 mmol/L Potassium Level 4.7 3.5-5.1 mmol/L Chloride Level 105 98-107 mmol/L Carbon Dioxide Level 26 20-31 mmol/L Anion Gap 8 5-15 Blood Urea Nitrogen 17 9-23 mg/dL Creatinine 1.03 0.700-1.30 mg/dL Glomerular Filtration Rate Calc 85 >90 mL/min BUN/Creatinine Ratio 16.5 10.0-20.0 Serum Glucose 92 74-106 mg/dL Calcium Level 9.9 8.7-10.4 mg/dL Urine Color Colorless Yellow Urine Clarity Clear Clear Urine pH 6.5 5.0-9.0 Urine Specific [place] 1.011 1.001-1.035 Urine Protein Negative Negative Urine Ketones Negative Negative Urine Blood Negative Negative /uL Urine Nitrite Negative Negative Urine Bilirubin Negative Negative Urine Urobilinogen Normal Negative mg/dL Urine Leukocyte Esterase Negative Negative /uL Urine RBC <1 0 - 3 /hpf Urine Microscopic WBC 0-3 /HPF Urine Squamous Epithelial Cells None seen <5 /hpf Urine Bacteria None seen None Seen /hpf Urine Glucose Normal Normal mg/dL Exam: CT CT AB PEL WO CON-NO ORAL OR IV IMPRESSION: 1. No acute abdominal or pelvic findings. No hydronephrosis or nephrolithiasis. Mild bladder wall thickening could be due to underdistention. Extensive sigmoid diverticulosis without evidence of acute diverticulitis. The patient's CBC and chemistry panel are within normal limits The urine test is negative At this time, the patient will be discharged The patient will follow up with the primary care doctor The patient was given a prescription of tramadol The patient understands and agrees with the management. This also could have been a kidney stone that has been recently passed. Images Reviewed?: Images reviewed and evaluated by me Time of 1ST Reevaluation: 12:09 Reevaluation 1ST: Unchanged Patient Education/Counseling: Diagnosis, Treatment, Prognosis, Need For Follow Up Family Education/Counseling: No Family Present Departure 1 Departure Time of Disposition: 14:08 Impression: Primary Impression: Acute abdominal pain Disposition: 01 HOME / SELF CARE / HOMELESS Condition: Fair e-Prescriptions Tramadol Hcl (Tramadol Hcl) 50 Mg Tab 50 MG PO Q8HP PRN for 5 Days, #15 TAB Prov: BJORN DUTTON MD 09/15/24 Discharged With: Self Critical Care Note Critical Care Time?: No Stability Stability form required: No I personally scribed for BJORN DUTTON MD ([email or web address]) on 09/15/24 at 12:09. Electronically submitted by Zoe Chaves ([facility]). I personally scribed for BJORN DUTTON MD ([email or web address]) on 09/15/24 at 13:33. Electronically submitted by Zoe Chaves ([facility]). BJORN DUTTON MD Sep 15, 2024 12:09
[2024-09-15] MEDS: SODIUM CHLORIDE 0.9% 1,000 ML IVB ONE (12:15)
--- NOTE | 2024-09-15 12:36 | DVH ---
Exam: CT CT AB PEL WO CON-NO ORAL OR IV History: left flank pain Comparison Study: CT CT AB PEL WO CON-NO ORAL OR IV on DOS: 05/29/24, CT CT AB PEL WO CON-NO ORAL OR IV on DOS: 10/24/23, CT ABD PELVIS WO CONTRAST on DOS: 04/16/21 Technique: Multidetector spiral CT of the abdomen and pelvis was performed from lung bases to pubic symphysis. Imaging was performed without IV contrast. Axial, coronal and sagittal multiplanar reform ats were obtained from the axial data set by the technologist. Radiation dose : Abdomen/Pelvis: CTDIvol 13 mGy, DLP 810.11 mGy*cm. Findings: Evaluation of solid organs is limited due to lack of intravenous contrast use. Lung Bases: No acute or significant lung base finding. Normal heart size. No pleural or pericardial effusion. Liver: The liver is normal in size. No focal lesions. Gallbladder and biliary Tree: Unremarkable Spleen: Unremarkable Pancreas: The pancreas is grossly normal in appearance. Adrenal Glands: Unremarkable Kidneys: Kidneys are grossly normal without calculi or hydronephrosis. Bladder: Mild bladder wall thickening. Bowel: The stomach is grossly normal in appearance. Small bowel and colon are normal in caliber and d istribution. Normal appendix is visualized in the right lower quadrant without findings of appendici tis. Sigmoid diverticulosis. Ascites: Absent Lymphadenopathy: No mesenteric, retroperitoneal or periportal lymphadenopathy. Abdominal wall and Mesentery: Unremarkable. Vasculature: The visualized abdominal aorta is normal in size and caliber. Evaluation of abdominal a nd pelvic vessels is limited due to lack of intravenous contrast. Pelvic Organs: Unremarkable Musculoskeletal: No aggressive focal bony lesions, acute fractures or dislocation. IMPRESSION: 1. No acute abdominal or pelvic findings. No hydronephrosis or nephrolithiasis. Mild bladder wall thi ckening could be due to underdistention. Extensive sigmoid diverticulosis without evidence of acute d iverticulitis. Radiation optimization: All CT scans at this facility use at least one of these dose optimization tejinder hniques: Automated exposure control mA and/or kV adjustment per patient size (includes targeted exams where dose is matched to clinical indication) or iterative reconstruction. HS:Y
[2024-09-15 13:23] LABS: Urine Bacteria None Seen /hpf (None Seen)
[2024-09-15 13:24] LABS: Basophils # (auto) 0 10 ^3/uL (0-0.2); Basophils % (auto) 0.4 % (0.0-2.0); Eosinophils # (auto) 0.1 10 ^3/uL (0-0.8); Eosinophils % (auto) 2.3 % (0.0-7.0); Hematocrit 52.1 % (41.0-53.0); Lymphocytes # (auto) 1.8 10 ^3/uL (0.4-5.4); Lymphocytes % (auto) 31.6 % (10.0-50.0); Mean Corpuscular Hemoglobin 35.1 pg (28.0-32.0); Mean Corpuscular Hgb Conc. 34.5 g/dL (32.0-36.0); Mean Corpuscular Volume 101.8 fL (80.0-100.0); Monocytes # (auto) 0.5 10 ^3/uL (0-1.3); Monocytes % (auto) 8.1 % (0.0-12.0); Neutrophils # (auto) 3.3 10 ^3/uL (1.6-8.6); Neutrophils % (auto) 57.6 % (37.0-80.0); Nucleated Red Blood Cells % 0.1 %; Platelet Count (auto) 208 10^3/uL (140-450); Red Blood Cells 5.12 10^6/uL (4.5-5.90); Red Cell Distribution Width 14.8 % (11.8-14.3); White Blood Cell 5.8 10^3/uL (4.4-10.8)
[2024-09-15 13:34] LABS: Urine Blood Negative /uL (Negative); Urine Clarity Clear (Clear); Urine Color Colorless (Yellow); Urine Protein, UAD Negative (Negative); Urine Specific Gravity 1.011 (1.001-1.035); Urine Squamous Epithelial Cell None Seen /hpf (<5); Urine Urobilinogen Normal (Negative); Urine pH 6.5 (5.0-9.0)
[2024-09-15 13:52] LABS: Anion Gap 8 (5-15); Carbon Dioxide 26 mmol/L (20-31); Chloride 105 mmol/L (98-107); Potassium 4.7 mmol/L (3.5-5.1); Sodium 139 mmol/L (136-145)
[2024-09-15 13:53] LABS: Calcium 9.9 mg/dL (8.7-10.4)
[2024-09-15 13:58] LABS: BUN/Creatinine Ratio 16.5 (10.0-20.0); Blood Urea Nitrogen 17 mg/dL (9-23); Glucose 92 mg/dL (74-106)
[2024-09-15] MEDS ORDERED: TRAM50TA2 PO (14:17)
[2024-09-15] MEDS: KETOROLAC TROMETH 30 MG/ML 1ML VIAL IV ONE (14:27)
[2024-09-15 15:39] VITALS: BP 133/99; PULSE 72; RESP 16; TEMP 98.1; O2SAT 96
== END 2024-09-15 15:40 | disposition home or self-care (01) ==
LOC: ER 11:37
DX: R10.32 Left lower quadrant pain (principal); J45.909 Unspecified asthma, uncomplicated; I10 Essential (primary) hypertension; K57.30 Diverticulosis of large intestine without perforation or abscess without bleeding; F17.210 Nicotine dependence, cigarettes, uncomplicated; Z88.1 Allergy status to other antibiotic agents
CPT/HCPCS: 36415; 74176; 80048; 81001; 85025; 96361; 96374; 99285; J1885; J7030